=== PATIENT | male | born 1980 | race Caucasian/White ===

== ENCOUNTER 2021-05-17 19:09 | Emergency (ER) | payer OTHER ==
[2021-05-17 23:12] LABS: HEMOGLOBIN 14.8 gm/dl (14.0-17.5); RED BLOOD COUNT 4.32 M/UL (4.20-5.50); WHITE BLOOD COUNT 11.2 K/UL (4.5-11.0)
[2021-05-17 23:34] LABS: BUN/CREATININE RATIO 10 (0-10)
== END 2021-05-18 09:50 | disposition home or self-care (01) ==
LOC: ER1 19:09
PROVIDERS: Emergency Medicine; Family Medicine
DX: F10.929 Alcohol use, unspecified with intoxication, unspecified (principal); F17.200 Nicotine dependence, unspecified, uncomplicated; I10 Essential (primary) hypertension
CPT/HCPCS: 80053; 80307; 81001; 85025; 99284; G0480